=== PATIENT | male | born 1965 | race Caucasian/White ===

== ENCOUNTER 2017-07-14 20:30 | Emergency (ER) | payer OTHER ==
[~2017-07-14] VITALS: Ht 167.6 cm; Wt 79.4 kg
[2017-07-14] MEDS ORDERED: CYCLOBENZAPRINE10 MG PO (21:47)
== END 2017-07-14 22:12 | disposition home or self-care (01) ==
LOC: ED 20:30
DX: M54.5 Low back pain (principal)

== ENCOUNTER → 2020-01-23 | Outpatient (CLI) | payer OTHER ==
[~2020-01-23] MED LIST: CYCLOBENZAPRINE10 MG PO
== END | disposition home or self-care (01) ==
LOC: RAD 09:37
PROVIDERS: ATTEND Psychiatry & Neurology Psychiatry
DX: M25.721 Osteophyte, right elbow (principal)